=== PATIENT | female | born 1990 | race Caucasian/White ===

== ENCOUNTER → 2020-08-14 20:10 | Emergency (ER) | payer SELFPAY ==
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
== END | disposition left against medical advice (07) ==
LOC: ER 20:10
DX: Z53.21 Procedure and treatment not carried out due to patient leaving prior to being seen by health care provider (principal); Y08.89XA Assault by other specified means, initial encounter; Y93.89 Activity, other specified; Y92.89 Other specified places as the place of occurrence of the external cause; Y99.8 Other external cause status

== ENCOUNTER 2021-03-10 03:52 | Emergency (ER) | payer SELFPAY ==
[~2021-03-10] VITALS: Ht 154.9 cm; Wt 47.2 kg
[2021-03-10 03:52] VITALS: BP 109/73
--- NOTE | 2021-03-10 04:02 | PHYS DOC ---
Adult General HPI HPI Patient is a 30-year-old female with a past medical history significant for POTS who presents to the emergency department via EMS for lightheadedness. Per EMS patient was arrested for DUI and taken to senior care and while in senior care became lightheaded and asked to call EMS. States that she has POTS and she gets lightheaded all the time. States she was lightheaded in the correction, but did not pass out. Denies any recent traumas, travel, illnesses, fevers, Covid/flu/cold symptoms, chest pain, shortness of breath, abdominal pain, nausea, vomiting, dysuria, hematuria, blood in the stool. Denies any drug use. States she was drinking earlier in the evening. States she is not gaining or losing any weight . States she is eating and drinking normally for her. States her urine and stool normal for her. Review of Systems Review of Systems Review of systems otherwise unremarkable except noted in HPI Physical Exam Physical Exam Constitutional: Well developed, well nourished, no acute distress, non-toxic appearance. [] HENT: Normocephalic, atraumatic, bilateral external ears normal, oropharynx moist, no oral exudates, nose normal. [] Eyes: PERRLA, EOMI, conjunctiva normal, no discharge. [] Neck: Normal range of motion, no tenderness, supple, no stridor. [] Cardiovascular: Sinus tachycardia Lungs & Thorax: Bilateral breath sounds clear to auscultation [] Abdomen: soft, no tenderness, no masses, no pulsatile masses. [] Skin: Warm, dry, no erythema, no rash. [] Extremities: No tenderness, no cyanosis, no clubbing, ROM intact, no edema. [] Neurologic: Alert and oriented X 3, normal motor function, normal sensory function, able to sit, stand and walk without issue no focal deficits noted. [] Psychologic: Affect normal, judgement normal, mood normal. [] EKG EKG [] Radiology/Procedures Radiology/Procedures [] Heart Score C/O Chest Pain: No Risk Factors: Risk Factors: DM, Current or recent (<one month) smoker, HTN, HLP, family history of CAD, obesity. Risk Scores: Risk Factors: DM, Current or recent (<one month) smoker, HTN, HLP, family history of CAD, obesity. Course & Med Decision Making Course & Med Decision Making Patient is a 30-year-old female who presents to the emergency department via EMS from senior care after being arrested for DUI with a chief complaint of lightheadedness Vital signs notable for sinus tachycardia. Physical exam noted above. EKG noted above with sinus tachycardia no STEMI. Dragon Disclaimer Dragon Disclaimer This electronic medical record was generated, in whole or in part, using a voice recognition dictation system. Departure Departure: Impression: Primary Impression: Light-headed Disposition: LEFT AGAINST MEDICAL ADVICE Condition: STABLE Referrals: PCP,UNKNOWN (PCP) CHRIS CHAN MD Patient Instructions: Dizziness Additional Instructions: Thank you for coming into the emergency department tonight allowing us to try to take care of you. Please read all the attached information very carefully. Given your history it was recommended that you stay in the emergency department for a complete work-up as described with an EKG of your heart and laboratory analysis to check your blood levels and electrolytes as well as urinalysis and test. As discussed, it is very dangerous becoming lightheaded as you could fall and severely injure yourself. Again, leaving without a work-up could put you at risk for severe illness, traumas, disability and even . Please call your primary care physician first thing in the morning to update them on your ED visit and set up a follow-up as soon as possible. Please come back to the emergency department immediately with new or concerning symptoms as discussed. GABO TORREZ MD Mar 10, 2021 04:02
== END 2021-03-10 04:03 | disposition left against medical advice (07) ==
LOC: ER 03:52
DX: R42 Dizziness and giddiness (principal); R00.0 Tachycardia, unspecified
CPT/HCPCS: 99283